=== PATIENT | male | born 1960 | race Caucasian/White ===

== ENCOUNTER 2024-01-28 15:27 | Emergency (ER) | payer BC, SELFPAY ==
[2024-01-28 15:28] VITALS: BP 164/110
[2024-01-28 15:51] VITALS: BMI 35.3
--- NOTE | 2024-01-28 15:54 | ED.GENMED ---
History of Present Illness
General
Chief Complaint: Breathing Problem
Source: patient
Time Seen by Provider: 01/28/24 15:36
History of Present Illness
History of Present Illness:
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 Symptoms started yesterday. He reports central chest tightness and states it feels
like 'something is moving inside of him.' The tightness feeling was intermittent yesterday but has been constant throughout the day today. He was doing some minor work today around 1pm which caused his symptoms to worsen. Symptoms feel similar to
when he was diagnosed with a PE in the past. He is currently on Eliquis and denies missing any doses. He also reports shortness of breath and lightheadedness. Lightheadedness is worse with position changes, specifically if he is going from sitting
to standing. He also endorses a dry cough. He has chronic bilateral leg swelling after a back surgery 5-6 years ago for which he uses compression stockings. He denies any syncope, nausea, vomiting, diaphoresis.
Past History
Past History
ED Past Medical History: GERD, HTN, Psychiatric (Depression) and Other (Chronic low back pain status post lumbar surgery 2019)
ED Past Surgical History: Orthopedic (Lumbar surgery, left knee arthroscopy, left ankle, right foot tendon surgery) and Urological (Left orchiectomy)
Social History
Tobacco: Non-smoker
Personal:
Living: with family
Employment: Disabled
Family History
Family History: Other (Noncontributory)
Phy Exam
General Physical Exam
General Presentation: well appearing and no apparent distress
General age: appears stated age
General Skin: warm and dry
General Habitus: normal
General Mental: alert
ENT Exam
ENT Exam: normocephalic
Cardiovascular Exam
Cardiovascular Exam: regular rate/rhythm and no murmur
Pulmonary Exam
Pulmonary Exam: lungs clear, no respiratory distress, no rales, no crackles, no rhonchi and no wheezing
Gastrointestinal Exam
Gastrointestinal Exam: non tender, soft and non distended
Neurological Exam
Neurological Exam: alert
Sod Coma Scale
Eye Opening: Spontaneous
Verbal Response: Oriented
Motor Response: Obeys Commands
GCS Total Score: 15
Skin Exam
Skin Exam: normal color and warm/dry
Psychiatric Exam
Psychiatric Exam: anxious
Scores
Heart Failure Risk
Heart Failure Risk Score: Not Applicable
Course
Orders/Labs/Results
Orders:
Orders
01/28/24 15:28
ECG [Electrocardiogram (*1)] Urgent
Reason for Study: Chest Pain
EKG- Treatment ONCE
01/28/24 15:53
Cardiac Monitoring- Treatment ONCE
CR Chest - 2 Views Urgent
Comment:
Reason For Exam: SOB
01/28/24 16:02
CMP [Comprehensive Metabolic Panel] Urgent
Complete Blood Count/With Diff Urgent
D-Dimer Urgent
NT-proBNP Urgent
Troponin I Urgent
01/28/24 16:05
COVID-19 Antigen Urgent
Source: Nasal Swab
Influenza A+B Rapid Molecular Urgent
TREY Source: Nasal Swab
Specimen Description:
01/28/24 17:21
EKG- Treatment ONCE
01/28/24 17:27
EKG- Treatment ONCE
01/28/24 18:00
Electrocardiogram (*1) Urgent
Reason for Study: Chest Pain
01/28/24 18:55
Troponin I Urgent
01/28/24 19:00
Electrocardiogram (*1) Urgent
Reason for Study: Chest Pain
Abnormal Lab Results
01/28/24
16:02
RBC 4.60 L 10^6/uL
(4.70-6.10)
MCH 32.8 H pg
(27.0-31.0)
MPV 11.4 H fL
(7.4-10.4)
01/28/24 16:02
01/28/24 16:02
Vital Signs
Initial and Last Documented VS:
Initial Vital Signs
Temp Pulse Resp BP Pulse Ox
97.9 F 80 18 164/110 98
01/28/24 15:28 01/28/24 15:28 01/28/24 15:28 01/28/24 15:28 01/28/24 15:28
Last Documented Vital Signs
Temp Pulse Resp BP Pulse Ox
97.9 F 76 10 128/94 94
01/28/24 15:28 01/28/24 16:46 01/28/24 16:46 01/28/24 19:00 01/28/24 19:30
MDM/Problems Addressed
Differential Diagnosis Includes:
63yoM here with chest tightness x 1 day. Associated with SOB and lightheadedness. Hx of PE and symptoms feel similar although patient reports compliance with Eliquis and oxygen saturation 98%. He is afebrile and hemodynamically stable. He is
non-toxic appearing. Exam is reassuring. Differential diagnosis includes but is not limited to: stable angina, ACS, pneumonia, PE, anxiety, nonspecific chest pain
Initial ED plan: Check cardiac labs, D-dimer, COVID/flu swab, EKG, and CXR.
*EKG
Interpreted by ED Provider?: Yes
EKG Intrepretation Date: 01/28/24
Heart Rate: 75
Rate: normal
Rhythm: sinus
Chambers: normal axis
Interval: normal interval
QRS Pattern: normal QRS
Ischemia: no ischemia
*Critical Care Note
Total Time (30-74mins, 75-104mins- exclusive of procedures): Not Applicable
Update Note
Update Note:
Labs overall unremarkable. D-dimer normal making PE very unlikely. EKG shows NSR without ischemic changes and troponin WNL. CXR is clear. On reassessment, he denies any chest discomfort but did have chest discomfort while ambulating to the bathroom.
HEART score is 3-4 depending on history. Offered admission which patient is declining. Delta troponin/EKG obtained which are unchanged. Advised close outpatient f/u with cardiology. Strict ED return precautions discussed. He was discharged in stable
condition.
ED Attending Note
-
Portions of this chart may have been created with voice recognition software.� Occasional wrong word or��sound alike� substitutions may have occurred due to the inherent limitations of voice recognition software.
Discharge Plan
Departure
Patient Disposition: Home (Routine Discharge)
Date of Disposition: 01/28/24
Time of Disposition: 19:37
Patient with high blood pressure during this ER visit?: Yes
Discharge Problem:
Chest pain
Instructions: Chest Pain CBC Follow Up
Prescriptions:
No Action
valsartan [Diovan] 160 MG capsule
80 mg PO BID
metoprolol succinate [Toprol XL] 25 MG tablet extended release 24 hr
12.5 mg PO HS
wtjnzsl-ubzskjoimxcpx-relddqzp [Excedrin Migraine] 1 TABLET tablet
levofloxacin [Levaquin] 750 MG tablet
750 mg PO DAILY Qty: 2 0RF
Rx Instructions:
start on 08/30
metronidazole 500 MG tablet
500 mg PO TID Qty: 6 0RF
cyclobenzaprine 10 MG tablet
10 mg PO TIDPRN PRN (Reason: pain ) Qty: 12 0RF
Eliquis 5 mg tablet
5 mg PO BID Qty: 180 0RF
Referrals:
Tk Elias MD [Active] -
Nery Melendez DO [Family Provider] -
Activity Restrictions/Additional Instructions:
Please call tomorrow to schedule a follow-up with your family doctor and cardiology.
Return to the ER immediately with any new or worsening symptoms.
Interventions
Interventions:
*Risk Screen - Suicide Last Done: 01/28/24 15:28
*General Assessment Last Done: 01/28/24 15:28
*Neglect/Abuse Screening Last Done: 01/28/24 17:58
ED- Fall Risk Assessment Last Done: 01/28/24 16:08
*ED COVID-19 Vaccine History Last Done: 01/28/24 15:28
*Nursing Disposition Last Done: 01/28/24 19:47
ED- Cardiac Assessment Last Done: 01/28/24 16:08
ED- Pulmonary Assessment Last Done: 01/28/24 16:08
Discharge Date and Time
Discharge Date/Time: 01/28/24 19:48
Print Language: OCCITAN
[2024-01-28 16:00] VITALS: BP 130/78
[2024-01-28 16:04] VITALS: BP 136/92
[2024-01-28 16:07] VITALS: BP 136/92
[2024-01-28 16:17] LABS: % Immature Granulocytes 0.2 % (0-0.5); % Lymphocytes 30.7 % (20.5-51.1); % Monocytes 7.7 % (1.7-9.3); % Neutrophils 58.4 % (42.2-75.2); Absolute Basophils 0.1 10^3/uL (0-0.2); Absolute Eosinophils 0.2 10^3/uL (0-0.7); Absolute Lymphocytes 2.6 10^3/uL (1.2-3.4); Absolute Monocytes 0.6 10^3/uL (0.1-0.6); Absolute Neutrophils 4.9 10^3/uL (1.4-6.5); Hematocrit 42.5 % (39.0-52.0); Hemoglobin 15.1 g/dL (13.0-18.0); Mean Corp Hgb Conc. 35.5 g/dL (33.0-37.0); Mean Corpuscular Hgb 32.8 pg (27.0-31.0); Mean Corpuscular Volume 92.4 fL (80.0-94.0); Mean Platelet Volume 11.4 fL (7.4-10.4); Nucleated Red Blood Cells % 0 % (-); Platelet Count 236 10^3/uL (130-400); White Blood Cell Count 8.4 10^3/uL (4.8-10.8)
[2024-01-28 16:30] LABS: D-Dimer < 0.27 ug/mlFEU (0.00-0.50)
[2024-01-28 16:32] LABS: ALT (SGPT) 18 U/L (0-50); AST (SGOT) 21 U/L (17-59); Albumin 4.2 g/dl (3.5-5.0); Alkaline Phosphatase 67 U/L (38-126); Blood Urea Nitrogen 17 mg/dl (9-20); Calcium 9.4 mg/dl (8.4-10.2); Carbon Dioxide 23 mmol/L (22-30); Chloride 105 mmol/L (98-107); Estimated Creatinine Clearance 86 ml/min; Glucose 89 mg/dl (70-99); Potassium 4.5 mmol/L (3.5-5.1); Sodium 140 mmol/L (135-145); Total Bilirubin 0.7 mg/dl (0.2-1.3); Total Protein 7.4 g/dl (6.3-8.2); eGFR > 60.00
[2024-01-28 16:38] LABS: COVID-19 Antigen Negative (Negative)
[2024-01-28 16:43] LABS: NT-proBNP 35.3 pg/ml; Troponin I < 0.012 ng/ml
[2024-01-28 18:00] VITALS: BP 136/88
[2024-01-28 19:00] VITALS: BP 128/94
[2024-01-28 19:26] LABS: Troponin I < 0.012 ng/ml
== END 2024-01-28 19:48 | disposition home or self-care (01) ==
LOC: EMR 15:27
PROVIDERS: Physician Assistant; Student in an Organized Health Care Education/Training Program; EMERGENCY PHYSICIAN Emergency Medicine; FAMILY PHYSICIAN Family Medicine
DX: R07.89 Other chest pain (principal); I10 Essential (primary) hypertension; Z11.52 Encounter for screening for COVID-19
CPT/HCPCS: 99285; 71046; 80053; 83880; 84484; 85025; 85379; 87502; 87811; 93005

== ENCOUNTER → 2024-01-29 16:49 | Outpatient (REF) | payer BC, SELFPAY ==
[2024-01-29 17:58] LABS: Troponin I < 0.012 ng/ml
== END ==
LOC: RAD 16:49
PROVIDERS: ATTENDING PHYSICIAN Internal Medicine Cardiovascular Disease; FAMILY PHYSICIAN Physician Assistant
DX: Z86.711 Personal history of pulmonary embolism (principal); R07.89 Other chest pain; R06.02 Shortness of breath; R10.13 Epigastric pain
CPT/HCPCS: 36415; 71275; 84484; Q9967

== ENCOUNTER → 2024-03-24 11:02 | Outpatient (REF) | payer BC, SELFPAY | LOC: DHCBC/DCA 11:02 | PROVIDERS: ATTENDING PHYSICIAN Internal Medicine Cardiovascular Disease; FAMILY PHYSICIAN Physician Assistant | DX: R07.89 Other chest pain (principal); R42 Dizziness and giddiness; R06.02 Shortness of breath; R26.2 Difficulty in walking, not elsewhere classified | CPT/HCPCS: 78452; 93017; A9500; J2785 ==

== ENCOUNTER → 2024-07-28 11:34 | Outpatient (REF) | payer BC, SELFPAY | LOC: DHSLP 11:34 | PROVIDERS: ATTENDING PHYSICIAN Internal Medicine Critical Care Medicine | DX: G47.33 Obstructive sleep apnea (adult) (pediatric) (principal) | CPT/HCPCS: 95800 ==

== ENCOUNTER 2025-01-23 05:48 | Emergency (ER) | payer OTHER, SELFPAY ==
[2025-01-23 05:52] VITALS: BP 155/105
--- NOTE | 2025-01-23 06:45 | EDRN ---
Assumed care of this pt at this time.
[2025-01-23 07:18] VITALS: BMI 34.4
--- NOTE | 2025-01-23 07:19 | EDRN ---
Pt ambulated to BR at this time using a walking stick he brought in after being weighed on standing scal.
[2025-01-23 07:22] VITALS: BP 143/93
--- NOTE | 2025-01-23 07:24 | ED.GENMED ---
History of Present Illness
General
Chief Complaint: Back Pain
Source: patient
Exam Limitations: none
Time Seen by Provider: 01/23/25 07:07
Nursing documentation reviewed up to this point in time: agreed with
History of Present Illness
History of Present Illness:
see MDM
Past History
Past History
ED Past Medical History: GERD, HTN, Psychiatric (Depression) and Other (Chronic low back pain status post lumbar surgery 2019)
ED Past Surgical History: Orthopedic (Lumbar surgery, left knee arthroscopy, left ankle, right foot tendon surgery) and Urological (Left orchiectomy)
Social History
Tobacco: Non-smoker
Personal:
Living: with family
Employment: Disabled
Family History
Family History: Other (Noncontributory)
Phy Exam
Physical Exam
Physical Exam:
GENERAL: Alert , in no apparent distress, comfortable at rest
HEAD: NCAT
NECK: no midline tenderness, active ROM intact, no paraspinal muscle tenderness;
CARDIAC: Regular rate and rhythm, no edema
LUNGS: Clear breath sounds bilaterally, no acute respiratory distress, no wheezes/rales/rhonchi
ABDOMEN: Soft, without focal tenderness, no r/g, no cvat, normal bowel sounds, nondistended
NEUROLOGICAL: Alert and oriented, no focal neuro deficits, CN intact, 4+/5 LLE strength, 5/5 RLE strength,sensation intact to thighs; has chronicneuropathy in lower legs; ambulation slight limp left leg
SKIN: Warm and dry, no wounds
midline incision lower lumbar
msk: hips and legs nontender, no swelling
back: No midline tenderness, moderate R paraspinal lumbar muscles pasm tender to palpiation
lower back inferior to scar has some sts
no bruising
negative straight leg raise Bilaterally
pain with changing positions
PSYCH: Normal and appropriate interaction.
Course
Orders/Labs/Results
Orders:
Orders
01/23/25 07:44
HYDROmorphone [Dilaudid] 1 mg IV NOW STA
01/23/25 07:50
CT Lumbar Spine W/ Iv Contrast Urgent
Comment:
Reason For Exam: swelling/pain after coughing; h/o L fusion, AC
01/23/25 08:34
Complete Blood Count/With Diff Urgent
Comprehensive Metabolic Panel Urgent
Abnormal Lab Results
01/23/25
08:34
MCV 94.2 H fL
(80.0-94.0)
MCH 33.1 H pg
(27.0-31.0)
MPV 11.1 H fL
(7.4-10.4)
Monocytes % 9.5 H %
(1.7-9.3)
Chloride 109 H mmol/L
(98-107)
01/23/25 08:34
01/23/25 08:34
Vital Signs
Initial and Last Documented VS:
Initial Vital Signs
Temp Pulse Resp BP Pulse Ox
37.0 C 78 16 155/105 95
01/23/25 05:52 01/23/25 05:52 01/23/25 05:52 01/23/25 05:52 01/23/25 05:52
Last Documented Vital Signs
Temp Pulse Resp BP Pulse Ox
37.0 C 78 16 159/98 94
01/23/25 05:52 01/23/25 11:00 01/23/25 11:00 01/23/25 10:35 01/23/25 11:00
MDM/Problems Addressed
Differential Diagnosis Includes:
see MDM
MDM/Problems Addressed:
Note:
CHIEF COMPLAINT(S)
Lower back pain.
HISTORY OF PRESENT ILLNESS
The patient is a 64-year-old male with a history of lumbar spine fusion L4-S1 six years ago, presenting with a recent onset of lower back pain. Approximately one week ago, the patient experienced sharp pain in the left lower back while retrieving an
item from the refrigerator. The pain was localized over the left side of the lumbar fusion site and lasted for three days. It resolved spontaneously but subsequently recurred on the right side. The patient describes the current pain as more severe
with inspiration.
The patients pain did not radiate down the legs, and there was no bowel or bladder incontinence reported. The left leg has been chronically weak following the surgery, which perhaps has worsened over the past week, but he really doesn't know for
sure. The patient uses hydrocodone and cyclobenzaprine, which provide minimal relief. The patient reported minimal relief with ice application and states standing and walking are more comfortable than sitting or lying down. There is no reported
fever. The patient has not had recent imaging of the back since a post-operative lumbar MRI.
he feels there is a swelling that is tender just to the R of his incision from his previous surgery
no redness, bruising
PAST MEDICAL AND SURGICAL HISTORY
The patient underwent lumbar spine fusion surgery six years ago.
CHRONIC MEDICAL CONDITIONS SIGNIFICANTLY AFFECTING CARE
The patient has a history of deep vein thrombosis in the lungs and upper chest, managed with blood thinners.
SOCIAL DETERMINANTS AFFECTING HEALTH
The patient has previously sought medical attention from multiple doctors with limited success in regaining the strength of his legs and reports dissatisfaction with previous medical care.
MEDICATIONS
The patient is taking hydrocodone and cyclobenzaprine as needed for pain management.
PHYSICAL EXAM
- Nursing notes reviewed and vital signs reviewed.
- Musculoskeletal: Localized tenderness over the right lumbar spine, near the fusion site. Tenderness with slight bump and swelling noted, atypical from baseline.
- Neurological: Chronic numbness reported from the site of previous surgery down the left leg, particularly on the outside and top of the knee. The patient shows weakness in the left leg chronically, and recent exacerbation of weakness.
- Sensory exam demonstrates reduced sensation over parts of the foot and toes.
PLAN
- Initiate intravenous access for pain management.
- Consider conducting a computed tomography scan to assess the hardware status and rule out potential bleeding due to blood thinner usage, in consultation with radiology.
- Potential future magnetic resonance imaging depending on clinical evolution, particularly if there is concern for surgical emergencies or spinal cord involvement, which is currently not strongly indicated by acute incontinence or dramatic new
weakness.
DIFFERENTIAL DIAGNOSIS
The Differential Diagnosis includes, in no particular order and is not limited to:
1. Hardware failure or displacement from previous lumbar surgery.
2. Muscular strain or spasm adjacent to surgical site.
3. New disc herniation.
4. Spinal stenosis or nerve root compression.
5. Lumber vertebral fracture or instability.
6. Epidural abscess or hematoma.
7. Chronic pain syndrome or failed back surgery syndrome.
8. Deep vein thrombosis recurrence or complications due to anticoagulation.
9. Myofascial pain due to altered biomechanics.
10. Infection or inflammation of the surgical site or surrounding area.
CARE-UPDATE
01/23/25 - 10:47
CT scan confirms hardware is intact with no rotation or misplacement, and there is no fluid collection, hemorrhage, or infection. Patient advised to use heat, topical lidocaine patches, and prescribed a short course of oxycodone, cautioning against
concurrent use with hydrocodone due to risks of sedation. Due to current anticoagulation therapy with Eliquis, NSAIDs like Motrin and Aleve are contraindicated. Patient instructed to monitor for any new neurological symptoms such as leg weakness or
incontinence, as these may warrant an MRI. Medication sent to pharmacy for pickup.
*Pulse Oximetry
SaO2: 96
Oxygen Mode of Delivery: Room air
Patient hypoxic: no (94)
*Critical Care Note
Total Time (30-74mins, 75-104mins- exclusive of procedures): Not Applicable
ED Attending Note
-
Portions of this chart may have been created with voice recognition software.� Occasional wrong word or��sound alike� substitutions may have occurred due to the inherent limitations of voice recognition software.
Discharge Plan
Departure
Patient Disposition: Home (Routine Discharge)
Date of Disposition: 09/20/25
Time of Disposition: 10:53
Patient with high blood pressure during this ER visit?: No
Condition: Fair
Discharge Problem:
Back pain
Instructions: Low Back Pain (DC)
Prescriptions:
New
oxycodone 5 mg tablet
5 mg PO Q8H PRN (Reason: Pain) Qty: 9 0RF
No Action
valsartan [Diovan] 160 MG capsule
80 mg PO BID
metoprolol succinate [Toprol XL] 25 MG tablet extended release 24 hr
12.5 mg PO HS
geateeh-skowsvcewqvxi-hitwlzcs [Excedrin Migraine] 1 TABLET tablet
levofloxacin [Levaquin] 750 MG tablet
750 mg PO DAILY Qty: 2 0RF
Rx Instructions:
start on 08/30
metronidazole 500 MG tablet
500 mg PO TID Qty: 6 0RF
cyclobenzaprine 10 MG tablet
10 mg PO TIDPRN PRN (Reason: pain ) Qty: 12 0RF
Eliquis 5 mg tablet
5 mg PO BID Qty: 180 0RF
Referrals:
Per Osman PA-C [Family Provider, General] - Follow up in 2-3 days
Activity Restrictions/Additional Instructions:
your hardware is in appropriate position, it seems as if your pain is probably musculoskeletal. You may end up needing an MRI if this continues however you did not emergently need 1 today. You had no signs of spinal cord emergency but if you
start getting weakness more in the legs, incontinence, worsening numbness or fever you should be seen again. In the meantime apply lidocaine patch 12 hours on, 12 hours off to the area that is painful and you can use heat to help with the muscle
pain. I can give you a short course of oxycodone which is a little stronger than the Vicodin that you are given. You should be on a stool softener while you are on this.
Return for any concerns
Interventions
Interventions:
*Risk Screen - Suicide Last Done: 01/23/25 05:52
*General Assessment Last Done: 01/23/25 05:52
*Neglect/Abuse Screening Last Done: 01/23/25 05:52
*ED- Fall Risk Assessment Last Done: 01/23/25 05:52
*ED COVID-19 Vaccine History Last Done: 01/23/25 05:52
*Nursing Disposition Last Done: 01/23/25 11:50
ED-Musculoskeletal Assessment Last Done: 01/23/25 07:14
Discharge Date and Time
Discharge Date/Time: 01/23/25 11:50
Print Language: SERBIAN
--- NOTE | 2025-01-23 07:35 | EDRN ---
Red COSME in room w/ pt at this time.
[2025-01-23] MEDS: DILAUDID 1 MG IV (08:32)
[2025-01-23 08:33] VITALS: BP 135/97
[2025-01-23 08:48] LABS: Hematocrit 45.3 % (39.0-52.0); Hemoglobin 15.9 g/dL (13.0-18.0); Mean Corp Hgb Conc. 35.1 g/dL (33.0-37.0); Mean Corpuscular Volume 94.2 fL (80.0-94.0); Nucleated Red Blood Cells % 0 % (-); Platelet Count 211 10^3/uL (130-400); Red Cell Dist. Width 12.9 % (11.5-14.5)
[2025-01-23 09:00] VITALS: BP 143/88
[2025-01-23 09:00] LABS: ALT (SGPT) 21 U/L (0-50); AST (SGOT) 18 U/L (17-59); Albumin 4.1 g/dl (3.5-5.0); Alkaline Phosphatase 55 U/L (38-126); Blood Urea Nitrogen 18 mg/dl (9-20); Calcium 9.3 mg/dl (8.4-10.2); Carbon Dioxide 26 mmol/L (22-30); Chloride 109 mmol/L (98-107); Estimated Creatinine Clearance 91 ml/min; Glucose 98 mg/dl (70-99); Potassium 4.5 mmol/L (3.5-5.1); Sodium 140 mmol/L (135-145); Total Protein 7.6 g/dl (6.3-8.2); eGFR > 60.00
[2025-01-23 10:34] VITALS: BP 159/98
[2025-01-23 10:35] VITALS: BP 159/98
== END 2025-01-23 11:50 | disposition home or self-care (01) ==
LOC: EMR 05:48
PROVIDERS: Physician Assistant; EMERGENCY PHYSICIAN Student in an Organized Health Care Education/Training Program; FAMILY PHYSICIAN Physician Assistant
DX: M54.50 Low back pain, unspecified (principal); X58.XXXA Exposure to other specified factors, initial encounter; K21.9 Gastro-esophageal reflux disease without esophagitis; I10 Essential (primary) hypertension; G89.29 Other chronic pain; Z86.718 Personal history of other venous thrombosis and embolism; Z90.79 Acquired absence of other genital organ(s); Z98.1 Arthrodesis status
CPT/HCPCS: 99284; 72132; 80053; 85025; Q9967